=== PATIENT | female | born 1955 | race Caucasian/White ===

== ENCOUNTER 2017-07-09 21:08 | Emergency (ER) | payer OTHER ==
[~2017-07-09] VITALS: Ht 152.4 cm; Wt 97.0 kg
[2017-07-09 22:08] VITALS: BP 146/75
== END 2017-07-09 22:10 | disposition home or self-care (01) ==
LOC: EMS 21:09
DX: S40.861A Insect bite (nonvenomous) of right upper arm, initial encounter (principal); R03.0 Elevated blood-pressure reading, without diagnosis of hypertension; Z90.49 Acquired absence of other specified parts of digestive tract; W57.XXXA Bitten or stung by nonvenomous insect and other nonvenomous arthropods, initial encounter; Y93.89 Activity, other specified; Y92.89 Other specified places as the place of occurrence of the external cause; Y99.8 Other external cause status
CPT/HCPCS: 99283

== ENCOUNTER 2018-12-07 17:02 | Emergency (ER) | payer OTHER ==
[~2018-12-07] VITALS: Ht 162.6 cm; Wt 104.5 kg
[2018-12-07] MEDS ORDERED: IBUPROFEN 800 MG TABLET PO ONE (20:00)
[2018-12-07] MEDS ORDERED: HYDROCODONE/ACETAMINOPHEN 5-325 MG TABLET PO ONE (20:00)
[2018-12-07 21:00] VITALS: BP 127/61
== END 2018-12-07 21:17 | disposition home or self-care (01) ==
LOC: EMS 17:05
DX: S82.842A Displaced bimalleolar fracture of left lower leg, initial encounter for closed fracture (principal); W18.39XA Other fall on same level, initial encounter; Y93.89 Activity, other specified; Y92.89 Other specified places as the place of occurrence of the external cause; Y99.8 Other external cause status
CPT/HCPCS: 29515

== ENCOUNTER 2018-12-24 05:51 | Day surgery (SDC) | payer OTHER ==
[~2018-12-24] VITALS: Ht 160 cm; Wt 97.7 kg
[~2018-12-24 05:51] MED LIST: CALC-789 PO; CeFAZolin 2 GM/DEXTROSE 50 ML IV ONE; FISH1CAP27 PO; RINGERS SOLUTION,LACTATED 1,000 ML IV ONE; VITAD1000 PO
[2018-12-24] MEDS ORDERED: RINGERS SOLUTION,LACTATED 1,000 ML IV ONE ×2 (06:00→10:57)
[2018-12-24] MEDS ORDERED: SODIUM CL IRRIG SOLN BAG 3,000 ML IRRIG ONE (07:15)
[2018-12-24] MEDS ORDERED: BUPIVACAINE/EPI/PF 0.5% 30 ML VIAL ONE (07:15)
[2018-12-24] MEDS ORDERED: ACETAMINOPHEN 1000 MG/ISO-OSM 100 ML IV ONE (07:21)
[2018-12-24] MEDS ORDERED: BUPIVACAINE HCL/PF 0.5% 30 ML VIAL ONE (07:21)
[2018-12-24] MEDS ORDERED: CeFAZolin 2 GM/DEXTROSE 50 ML IV ONE (08:30)
[2018-12-24] MEDS ORDERED: VANCOMYCIN HCL 1 GM/VIAL ONE (08:57)
[2018-12-24] MEDS ORDERED: FentaNYL CITRATE-PF 100 MCG/2 ML VIAL ONE (10:49)
[2018-12-24] MEDS: FentaNYL CITRATE-PF 100 MCG/2 ML VIAL IVP PRN ×2 (10:55→11:00)
[2018-12-24] MEDS ORDERED: HYDROmorphone 2 MG/ML SYRINGE ONE ×2 (10:57→11:10)
[2018-12-24] MEDS: HYDROmorphone 2 MG/ML SYRINGE IVP PRN ×2 (11:11→11:21)
[2018-12-24] MEDS ORDERED: HYDROCODONE/ACETAMINOPHEN 5-325 MG TABLET ONE (11:54)
[2018-12-24] MEDS ORDERED: MIDAZOLAM HCL 2 MG/2 ML VIAL IVP ONE (12:00)
[2018-12-24] MEDS ORDERED: PROPOFOL 1% 20 ML VIAL IVP ONE (12:00)
[2018-12-24] MEDS ORDERED: HYDROCODONE/ACETAMINOPHEN 5-325 MG TABLET PO ONE (12:00)
[2018-12-24] MEDS ORDERED: DEXAMETHASONE SOD PHOS 4 MG/ML VIAL IVP ONE (12:00)
[2018-12-24] MEDS ORDERED: EPHEDrine SULFATE 50 MG/ML VIAL IM ONE (12:00)
[2018-12-24] MEDS ORDERED: ONDANSETRON HCL 4 MG/2 ML VIAL IVP ONE (12:00)
[2018-12-24] MEDS ORDERED: LIDOCAINE/PF 2% 5 ML VIAL INJ ONE (12:00)
[2018-12-24] MEDS ORDERED: FentaNYL CITRATE-PF 100 MCG/2 ML VIAL IVP ONE (12:00)
[2018-12-24] MEDS ORDERED: OXYGEN THERAPY IH SCH (20:00)
== END 2018-12-24 14:05 | disposition home or self-care (01) ==
LOC: SURGERY 05:51
PROVIDERS: ATTEND Orthopaedic Surgery
DX: S82.832A Other fracture of upper and lower end of left fibula, initial encounter for closed fracture (principal); S80.11XA Contusion of right lower leg, initial encounter; Z90.49 Acquired absence of other specified parts of digestive tract; Z98.890 Other specified postprocedural states; X50.1XXA Overexertion from prolonged static or awkward postures, initial encounter; Y93.89 Activity, other specified; Y92.89 Other specified places as the place of occurrence of the external cause
CPT/HCPCS: 27603; 27792; 87070; 87077; 87186; 87205; C1713; J0131; J0690; J1100; J1170; J2250; J2405; J2704; J3010; J3370; J3490 ×4; J7120